=== PATIENT | male | born 2000 | race Hispanic/Latino ===

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

== ENCOUNTER 2023-11-03 00:02 | Emergency (ER) | payer OTHER, MEDICAID ==
[~2023-11-03] VITALS: Ht 177.8 cm; Wt 101.2 kg
[~2023-11-03 00:02] MED LIST: IBUP-2070 PO
[2023-11-03 00:24] VITALS: O2SAT 97
[2023-11-03] MEDS ORDERED: IBUP-1493 PO (00:52)
[2023-11-03] MEDS ORDERED: AZIT500T2 PO (00:52)
[2023-11-03] MEDS ORDERED: GUAI1TBM19 PO (00:52)
[2023-11-03 01:28] VITALS: BP 148/77; PULSE 89; RESP 18
== END 2023-11-03 01:34 | disposition home or self-care (01) ==
LOC: EDH 00:02
DX: J20.9 Acute bronchitis, unspecified (principal); F17.200 Nicotine dependence, unspecified, uncomplicated
CPT/HCPCS: 71045